=== PATIENT | male | born 1955 | race Caucasian/White ===

== ENCOUNTER 2017-06-26 05:13 | Emergency (ER) | payer OTHER ==
--- NOTE | 2017-06-26 05:24 | EDM.PDOC ---
ED HPI GENERAL MEDICAL PROBLEM - General Chief Complaint: Gastrointestinal Problem Stated Complaint: CONSTIPATED Time Seen by Provider: 06/26/17 05:23 Source of Information: Reports: Patient History Limitations: Reports: No Limitations - History of Present Illness INITIAL COMMENTS - FREE TEXT/NARRATIVE: 61-year-old male presents to the ED with lower abdominal pressure discomfort and rectal pressure discomfort. States he's not had a good bowel movement for 3- 4 days. States he has a constant urge to defecate and is mostly getting smeared soft liquidy stool when he sits on the toilet. No rectal bleeding. Intermittent fairly strong abdominal cramps at times. No fever or chills. No nausea vomiting. Appetite is good. He was on a few hydrocodone tablets a few days ago that may have precipitated constipation. Is currently on 5 mg prednisone a day weaning from 15 mg a day for suspect polymyalgia rheumatica. He does have some problems occur external hemorrhoids but no active bleeding at this time. Onset: Gradual Onset Date: 06/23/17 Duration: Day(s): Location: Reports: Abdomen (Lower abdominal rectal pressure discomfort from no good bowel movement 3 days.) Quality: Reports: Pressure Severity: Moderate Improves with: Reports: None Worsens with: Reports: Eating Context: Denies: Activity, Exercise, Lifting, Sick Contact, Trauma, Other Associated Symptoms: Reports: Other Treatments [employer]: Reports: Other (see below) (None.) Lower Abdomen Pain Score (Numeric/FACES): 6 - Related Data Allergies Allergy/AdvReac Type Severity Reaction Status Date / Time No Known Allergies Allergy Verified 06/26/17 05:21 Home Meds: Home Meds Prednisone [IJD: Prednisone] 5 mg PO DAILY 06/26/17 [History] Past Medical History Musculoskeletal History: Reports: Other (See Below) (Patient started to develop generalized severe myalgia in his forearms legs especially the thighs shoulders back in April. Was felt he was possibly exhibiting signs and symptoms of polymyalgia rheumatica. Was started on 15 mg of prednisone daily and got immediate relief within a day or so. Since that time is been gradually weaning his prednisone dosage down to 5 mg once daily at this time.) Social & Family History - Living Situation & Occupation Occupation: Employed [employer] - Review of Systems Review Of Systems: See Below Constitutional: Reports: No Symptoms HEENT: Reports: No Symptoms Respiratory: Reports: No Symptoms Cardiovascular: Reports: No Symptoms Endocrine: Reports: No Symptoms GI/Abdominal: Reports: Abdominal Pain, Constipation (See history of present illness) : Reports: No Symptoms Musculoskeletal: Reports: Other (Currently pain-free on 5 mg of prednisone daily. Started on 15 mg daily back in April for suspect polymyalgia rheumatica. Got almost immediate improvement within a day or so starting medication which clarifies the diagnosis is most likely) Skin: Reports: No Symptoms ( polymyalgia rheumatica.) Neurological: Reports: No Symptoms ED EXAM, GI/ABD - Physical Exam Exam: See Below Exam Limited By: No Limitations General Appearance: Alert, WD/WN, Moderate Distress (In obvious discomfort from abdominal cramps.) Respiratory/Chest: No Respiratory Distress, Lungs Clear, Normal Breath Sounds, Chest Non-Tender Cardiovascular: Normal Peripheral Pulses, Regular Rate, Rhythm, No Edema, No Gallop, No Murmur, No Rub GI/Abdominal Exam: Normal Bowel Sounds, Soft, Non-Tender, No Organomegaly, No Abnormal Bruit, No Mass, Pelvis Stable Rectal (Males) Exam: Fecal Impaction Extremities: Normal Inspection, Normal Range of Motion, Non-Tender, No Pedal Edema Course - Vital Signs Last Recorded V/S: Last Vital Signs Temp 35.8 C 06/26/17 05:22 Pulse 102 H 06/26/17 05:22 Resp 16 06/26/17 05:22 BP 148/92 H 06/26/17 05:22 Pulse Ox 100 06/26/17 05:22 - Orders/Labs/Meds Orders: Active Orders 24 hr Category Date Time Status Enema [RC] ASDIRECTED Care 06/26/17 05:33 Inactive Meds: Medications Discontinued Medications Generic Name Dose Route Start Last Admin Trade Name Freq PRN Reason Stop Dose Admin Lidocaine HCl 10 ml 06/26/17 05:32 Xylocaine 2% Jelly MUCMEM 06/26/17 05:33 ONETIME ONE - Radiology Interpretation Free Text/Narrative:: Evaluation the emergency room this morning due to constant rectal pressure need to defecate but unable to do so. So intermittent abdominal cramping pains. No good bowel movement for 3 days. Benign abdominal examination other than very active bowel sounds. Plan was to proceed with the topical lidocaine gel to the anal tissues and a Fleet enema with mineral oil to provide relief of stool plug. However the patient had a bowel movement while in the department before any medications were administered and passed a large plug with some loose stool behind it. He now feels acting normal. Therefore no treatment was dictated and he was discharged home. Advised about MiraLAX powder 17 g daily if problems with constipation continue. Departure - Departure Time of Disposition: 05:40 Disposition: Home, Self-Care 01 Condition: Fair Clinical Impression: Constipation by delayed colonic transit Abdominal pain Qualifiers: Abdominal location: left lower quadrant Qualified Code(s): R10.32 - Left lower quadrant pain - Discharge Information Referrals: Ezra Escalona MD [Primary Care Provider] - Forms: ED Department Discharge Additional Instructions: Evaluation the emergency room this morning due to constant rectal pressure with the need to defecate but unable to do so. No good bowel movement for about 3 days. However while you were in the department he managed to pass her bowels on her own with good relief of rectal plug and no medication was required. I would suggest that if similar type problem seem to be occurring then purchased MiraLAX powder which can be found at [facility] and take 5 scoops with 30 ounces of Gatorade or Powerade by mouth once. This usually gets the bowels working very well within a few hours. If constipation issues persist on a daily basis than taking MiraLAX powder 1 scoop daily prevents constipation from occurring. It also is not addicting to the bowel. - My Orders Last 24 Hours: My Active Orders 06/26/17 05:33 Enema [RC] ASDIRECTED - Assessment/Plan Last 24 Hours: My Active Orders 06/26/17 05:33 Enema [RC] ASDIRECTED
[2017-06-26] MEDS ORDERED: Lidocaine 2% Jelly 10 ML Urojet MUCMEM ONE (05:32)
== END 2017-06-26 05:46 | disposition home or self-care (01) ==
LOC: JD.ED 05:13
DX: K59.01 Slow transit constipation (principal); Z79.899 Other long term (current) drug therapy
CPT/HCPCS: 99282; 99283

== ENCOUNTER 2023-12-30 07:00 | Day surgery (SDC) | payer MEDICARE, OTHER ==
[~2023-12-30 07:00] MED LIST: Morphine 8 MG, EPINEPHrine 0.3 MG, Cefuroxime 750 MG, Ketorolac 30 MG, Sodium Chloride ... PRN; Sodium Chloride 0.9% 10 ML Syringe FLUSH PRN; Sodium Chloride 0.9% 10 ML Syringe FLUSH SCH
[2023-12-30] MEDS: Lactated Ringers 1,000 ML IV SCH (07:15)
[2023-12-30] MEDS: Pregabalin 25 MG Cap PO SCH (07:45)
[2023-12-30] MEDS: oxyCODONE ER 10 MG TAB.ER PO SCH (07:45)
[2023-12-30] MEDS: Acetaminophen 325 MG Tab PO SCH (07:46)
[2023-12-30] MEDS ORDERED: Midazolam 1 MG/ML 2 ML SDV ONE (08:16)
[2023-12-30] MEDS ORDERED: fentaNYL 100 MCG/2 ML SDV ONE (08:16)
[2023-12-30] MEDS ORDERED: Propofol 200 MG/20 ML SDV ONE ×3 (08:34→11:05)
[2023-12-30] MEDS ORDERED: Lidocaine 2% 5 ML SDV ONE (08:36)
[2023-12-30] MEDS ORDERED: ceFAZolin 2 GM Vial ONE ×2 (08:37→11:41)
[2023-12-30] MEDS: Tranexamic Acid 1,000 MG/10 ML Vial ONE (09:32)
[2023-12-30] MEDS: Morphine 8 MG, EPINEPHrine 0.3 MG, Cefuroxime 750 MG, Ketorolac 30 MG, Sodium Chloride ... PRN (09:32)
[2023-12-30] MEDS: Vancomycin 1 GM SDV ONE (09:32)
[2023-12-30] MEDS ORDERED: Ondansetron 4 MG/2 ML SDV IVPUSH PRN (10:01)
[2023-12-30] MEDS ORDERED: fentaNYL 100 MCG/2 ML SDV IVPUSH PRN (10:01)
[2023-12-30] MEDS ORDERED: HYDROmorphone 0.5 MG/0.5 ML Syringe IVPUSH PRN (10:01)
[2023-12-30] MEDS ORDERED: Sodium Chloride 0.9% 100 ML ONE (10:59)
[2023-12-30] MEDS ORDERED: Phenylephrine 1% 10 MG/ML SDV ONE (11:00)
[2023-12-30] MEDS: oxyCODONE 5 MG Tab PO PRN (11:40)
== END 2023-12-30 14:50 | disposition home or self-care (01) ==
LOC: JD.SDS 07:00
PROVIDERS: ATTEND Orthopaedic Surgery
DX: M16.12 Unilateral primary osteoarthritis, left hip (principal); K42.9 Umbilical hernia without obstruction or gangrene; Z79.899 Other long term (current) drug therapy
CPT/HCPCS: 0055T; 27130; 36415; 73501; 86850; 86900; 86901; 97110; 97161; A9270; C1713; C1776; J0171; J0690; J0697; J1885; J2250; J2270; J2371; J2704; J3010; J3370; J3490; J7120; 01214